=== PATIENT | male | born 1960 | race Caucasian/White ===

== ENCOUNTER 2023-10-02 05:57 | Emergency (ER) | payer OTHER, MEDICAID ==
[~2023-10-02] VITALS: Ht 190.5 cm; Wt 174.6 kg
[2023-10-02 05:59] VITALS: BP_SYST 142; PULSE 103; RESP 20; TEMP 98.5; O2SAT 99
[2023-10-02 06:28] LABS: BASOPHILS # (AUTO) 0.1 K/uL (0.0-0.2); BASOPHILS % (AUTO) 0.7 % (0.0-2.0); EOSINOPHILS # (AUTO) 0.1 K/uL (0.0-0.4); EOSINOPHILS % (AUTO) 1.1 % (0.0-4.0); HEMATOCRIT 47.4 % (36-54); HEMOGLOBIN 16.1 g/dL (14.0-18.0); LYMPHOCYTES # (AUTO) 1.6 K/uL (1.0-5.5); LYMPHOCYTES % (AUTO) 14.3 % (20.5-51.5); MEAN CORPUSCULAR HEMOGLOBIN 29 pg (27-31); MEAN CORPUSCULAR HGB CONC 34 % (32-36); MEAN CORPUSCULAR VOLUME 84 fL (79.0-98.0); MONOCYTES # (AUTO) 0.5 K/uL (0.0-1.0); MONOCYTES % (AUTO) 4.5 % (1.7-9.3); NEUTROPHILS # (AUTO) 8.9 K/uL (1.8-7.7); NEUTROPHILS % (AUTO) 79.4 % (40.0-70.0); PLATELET COUNT (AUTO) 251 K/uL (130-430); RED BLOOD CELL COUNT(AUTO) 5.65 MIL/uL (4.2-6.2); WHITE BLOOD COUNT (AUTO) 11.2 K/uL (4.8-10.8)
[2023-10-02 06:45] LABS: PROTHROMBIN TIME 10.4 SECS (9.5-12.5)
[2023-10-02 06:46] LABS: ALBUMIN 3.6 g/dL (3.4-4.8); BILIRUBIN,DIRECT 0.2 mg/dL (0.0-0.3); CALCIUM 9.5 mg/dL (8.4-11.0); POTASSIUM 3.8 mmol/L (3.5-5.1); TOTAL BILIRUBIN 0.6 mg/dL (0.0-1.0); TOTAL PROTEIN, SERUM 7.5 g/dL (6.4-8.3)
[2023-10-02] MEDS: MORPHINE 4 MG INJ. 4 MG/ML VIAL IVP ONE (06:51)
[2023-10-02] MEDS: ONDANSETRON HCL 4 MG/2 ML VIAL IVP ONE (06:52)
[2023-10-02 07:43] LABS: BILIRUBIN,URINE NEGATIVE (NEGATIVE); BLOOD, URINE NEGATIVE (NEGATIVE); CLARITY/URINE CLEAR (CLEAR); COLOR,URINE YELLOW (YELLOW); GLUCOSE,URINE 3+ (NEGATIVE); KETONES,URINE NEGATIVE (NEGATIVE); LEUKOCYTE ESTERASE ,URINE NEGATIVE (NEGATIVE); NITRITE, URINE NEGATIVE (NEGATIVE); PH,URINE 6.5 (5.0-8.0); PROTEIN URINE NEGATIVE (NEGATIVE); UROBILINOGEN,URINE 0.2 (0.2-1.0)
[2023-10-02 08:06] LABS: BACTERIA,URINE RARE /HPF (None Seen); MUCUS,URINE 1+ /LPF (None Seen); RBC,URINE 0-3 /HPF (0-3); WBC,URINE 0-3 /HPF (0-3)
[2023-10-02] MEDS ORDERED: ONDA-8 TL (08:06)
[2023-10-02] MEDS ORDERED: PANT20TA2 PO (08:16)
[2023-10-02 08:34] VITALS: BP_SYST 124; PULSE 88; RESP 14; TEMP 97.9; O2SAT 96
== END 2023-10-02 08:25 | disposition home or self-care (01) ==
LOC: SED 05:57
DX: R10.84 Generalized abdominal pain (principal); K55.069 Acute infarction of intestine, part and extent unspecified; K63.89 Other specified diseases of intestine; R73.9 Hyperglycemia, unspecified; N20.0 Calculus of kidney; I10 Essential (primary) hypertension; Z88.8 Allergy status to other drugs, medicaments and biological substances; Z88.5 Allergy status to narcotic agent; Z79.899 Other long term (current) drug therapy
CPT/HCPCS: 99285; 74176; 96374; 96375; 80076; 80048; 81001; 83690; 85025; 85610; 85730; 36415; 76376; J2405; J2270; 81000; 81015

== ENCOUNTER 2023-11-05 03:05 | Inpatient (IN) | payer OTHER, MEDICAID ==
[~2023-11-05] VITALS: Ht 188 cm; Wt 158.3 kg
[~2023-11-05 03:05] MED LIST: ONDA-8 TL; PANT20TA2 PO
[2023-11-05 03:11] VITALS: RESP 20
[2023-11-05] MEDS: NACL 0.9% 1,000 ML IV ONE (03:26)
[2023-11-05] MEDS: MORPHINE 4 MG INJ. 4 MG/ML VIAL IVP ONE (03:30)
[2023-11-05] MEDS: ONDANSETRON HCL 4 MG/2 ML VIAL IVP ONE ×2 (03:33→05:50)
[2023-11-05 03:58] LABS: BASOPHILS # (AUTO) 0.1 K/uL (0.0-0.2); BASOPHILS % (AUTO) 0.7 % (0.0-2.0); EOSINOPHILS # (AUTO) 0.2 K/uL (0.0-0.4); EOSINOPHILS % (AUTO) 2.1 % (0.0-4.0); HEMATOCRIT 46.5 % (36-54); HEMOGLOBIN 15.9 g/dL (14.0-18.0); LYMPHOCYTES # (AUTO) 1.5 K/uL (1.0-5.5); LYMPHOCYTES % (AUTO) 18.7 % (20.5-51.5); MEAN CORPUSCULAR HEMOGLOBIN 29 pg (27-31); MEAN CORPUSCULAR HGB CONC 34 % (32-36); MEAN CORPUSCULAR VOLUME 84 fL (79.0-98.0); MONOCYTES # (AUTO) 0.6 K/uL (0.0-1.0); MONOCYTES % (AUTO) 7.6 % (1.7-9.3); NEUTROPHILS # (AUTO) 5.5 K/uL (1.8-7.7); NEUTROPHILS % (AUTO) 70.9 % (40.0-70.0); PLATELET COUNT (AUTO) 248 K/uL (130-430); RED BLOOD CELL COUNT(AUTO) 5.55 MIL/uL (4.2-6.2); WHITE BLOOD COUNT (AUTO) 7.8 K/uL (4.8-10.8)
[2023-11-05 04:16] LABS: ANION GAP 7 (5-15); CALCIUM 9.1 mg/dL (8.4-11.0); CARBON DIOXIDE 31 mmol/L (23-29); CHLORIDE 104 mmol/L (98-107); CREATININE 0.81 mg/dL (0.55-1.30); GFR AFRICAN AMERICAN 124 mL/min (>90); GFR NON AFRICAN-AMERICAN 102 mL/min (>90); GLUCOSE 117 mg/dL (74-106); POTASSIUM 3.9 mmol/L (3.5-5.1); SODIUM SERUM 142 mmol/L (136-145); UREA NITROGEN, BLOOD 12 mg/dL (8-21)
[2023-11-05 04:19] LABS: ALANINE AMINOTRANSFERASE 60 U/L (12-78); ALBUMIN 3.4 g/dL (3.4-4.8); ASPARTATE AMINOTRANSFERASE 30 U/L (10-37); BILIRUBIN,DIRECT 0.2 mg/dL (0.0-0.3); LIPASE 34 U/L (16-77); TOTAL BILIRUBIN 0.8 mg/dL (0.0-1.0); TOTAL PROTEIN, SERUM 7.1 g/dL (6.4-8.3)
[2023-11-05 05:02] LABS: BILIRUBIN,URINE NEGATIVE (NEGATIVE); BLOOD, URINE NEGATIVE (NEGATIVE); CLARITY/URINE CLEAR (CLEAR); COLOR,URINE YELLOW (YELLOW); GLUCOSE,URINE NEGATIVE (NEGATIVE); KETONES,URINE NEGATIVE (NEGATIVE); LEUKOCYTE ESTERASE ,URINE NEGATIVE (NEGATIVE); NITRITE, URINE NEGATIVE (NEGATIVE); PROTEIN URINE NEGATIVE (NEGATIVE); UROBILINOGEN,URINE 0.2 (0.2-1.0)
[2023-11-05] MEDS: KETOROLAC TROMETHAMINE 15 MG VIAL IVP ONE (05:42)
[2023-11-05] MEDS ORDERED: AMLO2.5T50 PO (05:56)
[2023-11-05] MEDS ORDERED: EMPA25TA PO (05:56)
[2023-11-05] MEDS ORDERED: ATOR10TA68 PO (05:56)
[2023-11-05] MEDS ORDERED: PANT40TA45 PO (05:56)
[2023-11-05] MEDS ORDERED: ESCI-6 PO (05:56)
[2023-11-05] MEDS ORDERED: LISI-209 PO (05:57)
[2023-11-05] MEDS: D5/0.45 NS 1,000 ML IV SCH (07:56)
[2023-11-05 10:41] VITALS: BP_SYST 122; PULSE 59; RESP 16; TEMP 97.9; O2SAT 96
[2023-11-05 12:00] VITALS: BP_SYST 122; PULSE 57; RESP 16; TEMP 97.9; O2SAT 96
[2023-11-05] MEDS ORDERED: KETOROLAC TROMETHAMINE 30 MG VIAL IM PRN (13:15)
[2023-11-05] MEDS ORDERED: HYDROcodone/ACETAMIN 5-325 MG TAB (NORCO/ VICODIN) PO PRN (13:15)
[2023-11-05] MEDS: PANTOPRAZOLE SODIUM 40 MG/VIAL (PROTONIX) IVP ONE (13:32)
[2023-11-05] MEDS: ONDANSETRON HCL 4 MG/2 ML VIAL IVP PRN (13:33)
[2023-11-05] MEDS: HYDROcodone/ACETAMIN 10-325 MG TAB PO PRN (13:34)
[2023-11-05 16:00] VITALS: BP_SYST 129; PULSE 62; RESP 16; TEMP 97.6; O2SAT 98
[2023-11-05] MEDS: CITALOPRAM HYDROBROMIDE 20 MG TABLET PO SCH (17:15)
[2023-11-05] MEDS: ATORVASTATIN 10 MG TABLET PO SCH (17:16)
[2023-11-05] MEDS ORDERED: ESCITALOPRAM OXALATE 10 MG TABLET PO SCH (18:00)
[2023-11-05 19:45] VITALS: BP_SYST 106; PULSE 65; RESP 18; TEMP 97.5; O2SAT 96
[2023-11-05 20:45] VITALS: O2SAT 96
[2023-11-06] VITALS (8 sets, daily range): BP systolic 100–142; PULSE 54–60; RESP 16–18; TEMP 96.3–97.8; O2SAT 94–98
[2023-11-06] MEDS: MORPHINE 2 MG/ML INJ. SYRINGE IVP PRN (02:39)
[2023-11-06 06:05] LABS: BASOPHILS % (AUTO) 0.9 % (0.0-2.0); EOSINOPHILS # (AUTO) 0.1 K/uL (0.0-0.4); EOSINOPHILS % (AUTO) 1.9 % (0.0-4.0); HEMATOCRIT 42.8 % (36-54); HEMOGLOBIN 14.7 g/dL (14.0-18.0); LYMPHOCYTES # (AUTO) 1.2 K/uL (1.0-5.5); LYMPHOCYTES % (AUTO) 23.4 % (20.5-51.5); MEAN CORPUSCULAR HEMOGLOBIN 29 pg (27-31); MEAN CORPUSCULAR HGB CONC 34 % (32-36); MEAN CORPUSCULAR VOLUME 84 fL (79.0-98.0); MONOCYTES # (AUTO) 0.4 K/uL (0.0-1.0); MONOCYTES % (AUTO) 6.8 % (1.7-9.3); NEUTROPHILS # (AUTO) 3.5 K/uL (1.8-7.7); PLATELET COUNT (AUTO) 213 K/uL (130-430); RED CELL DISTRIBUTION WIDTH 15.9 % (9.0-15.0); WHITE BLOOD COUNT (AUTO) 5.3 K/uL (4.8-10.8)
[2023-11-06 07:33] LABS: INR 1.1 (0.80-1.20); PROTHROMBIN TIME 11.1 SECS (9.5-12.5)
[2023-11-06] MEDS ORDERED: MEPERIDINE 100 MG INJ. 100 MG/ML VIAL ONE (07:47)
[2023-11-06] MEDS ORDERED: MIDAZOLAM HCL 5 MG/5 ML VIAL ONE (07:48)
[2023-11-06 07:50] LABS: CALCIUM 8.5 mg/dL (8.4-11.0); CREATININE 0.8 mg/dL (0.55-1.30); PHOSPHORUS 3.1 mg/dL (2.7-4.5); POTASSIUM 4.3 mmol/L (3.5-5.1); TOTAL BILIRUBIN 0.8 mg/dL (0.0-1.0); TOTAL PROTEIN, SERUM 6.3 g/dL (6.4-8.3)
[2023-11-06] MEDS: amLODIPine BESYLATE 5 MG TABLET PO SCH (09:00)
[2023-11-06] MEDS: EMPAGLIFLOZIN 10 MG TABLET PO SCH (09:00)
[2023-11-06] MEDS: lisinopriL 5 MG TABLET PO SCH (09:00)
[2023-11-06] MEDS ORDERED: PANTOPRAZOLE SODIUM 40 MG TAB PO SCH (09:00)
[2023-11-06] MEDS: PANTOPRAZOLE SODIUM 40 MG/VIAL (PROTONIX) IVP SCH (12:55)
[2023-11-06] MEDS: DICYCLOMINE HCL 10 MG CAPSULE PO ONE (17:02)
[2023-11-06] MEDS: DICYCLOMINE HCL 10 MG CAPSULE PO SCH (20:27)
[2023-11-07] VITALS (8 sets, daily range): BP systolic 99–125; PULSE 53–69; RESP 17–19; TEMP 96.9–97.6; O2SAT 94–99
[2023-11-07 07:04] LABS: BASOPHILS % (AUTO) 0.7 % (0.0-2.0); EOSINOPHILS # (AUTO) 0.1 K/uL (0.0-0.4); EOSINOPHILS % (AUTO) 2.3 % (0.0-4.0); HEMATOCRIT 43.8 % (36-54); HEMOGLOBIN 14.8 g/dL (14.0-18.0); LYMPHOCYTES # (AUTO) 1.2 K/uL (1.0-5.5); LYMPHOCYTES % (AUTO) 20.1 % (20.5-51.5); MEAN CORPUSCULAR HEMOGLOBIN 29 pg (27-31); MEAN CORPUSCULAR HGB CONC 34 % (32-36); MEAN CORPUSCULAR VOLUME 84 fL (79.0-98.0); MONOCYTES # (AUTO) 0.4 K/uL (0.0-1.0); MONOCYTES % (AUTO) 6.9 % (1.7-9.3); NEUTROPHILS # (AUTO) 4.3 K/uL (1.8-7.7); PLATELET COUNT (AUTO) 216 K/uL (130-430); RED BLOOD CELL COUNT(AUTO) 5.21 MIL/uL (4.2-6.2); RED CELL DISTRIBUTION WIDTH 16.1 % (9.0-15.0); WHITE BLOOD COUNT (AUTO) 6.2 K/uL (4.8-10.8)
[2023-11-07 07:17] LABS: CALCIUM 8.8 mg/dL (8.4-11.0); CREATININE 0.86 mg/dL (0.55-1.30); POTASSIUM 4.3 mmol/L (3.5-5.1)
[2023-11-07] MEDS: MORPHINE 4 MG INJ. 4 MG/ML VIAL IVP PRN (18:44)
[2023-11-08 00:18] VITALS: BP_SYST 124; PULSE 54; RESP 22; TEMP 98; O2SAT 98
[2023-11-08 07:02] LABS: BASOPHILS % (AUTO) 0.5 % (0.0-2.0); EOSINOPHILS # (AUTO) 0.2 K/uL (0.0-0.4); EOSINOPHILS % (AUTO) 2.6 % (0.0-4.0); HEMATOCRIT 46.5 % (36-54); HEMOGLOBIN 15.5 g/dL (14.0-18.0); LYMPHOCYTES # (AUTO) 1.5 K/uL (1.0-5.5); MEAN CORPUSCULAR HEMOGLOBIN 28 pg (27-31); MEAN CORPUSCULAR HGB CONC 33 % (32-36); MEAN CORPUSCULAR VOLUME 85 fL (79.0-98.0); MONOCYTES # (AUTO) 0.5 K/uL (0.0-1.0); MONOCYTES % (AUTO) 6.8 % (1.7-9.3); NEUTROPHILS # (AUTO) 4.4 K/uL (1.8-7.7); NEUTROPHILS % (AUTO) 67.1 % (40.0-70.0); PLATELET COUNT (AUTO) 228 K/uL (130-430); RED BLOOD CELL COUNT(AUTO) 5.47 MIL/uL (4.2-6.2); RED CELL DISTRIBUTION WIDTH 16.6 % (9.0-15.0); WHITE BLOOD COUNT (AUTO) 6.6 K/uL (4.8-10.8)
[2023-11-08 07:08] LABS: ALBUMIN 3.2 g/dL (3.4-4.8); CALCIUM 9.3 mg/dL (8.4-11.0); CREATININE 0.86 mg/dL (0.55-1.30); POTASSIUM 4.6 mmol/L (3.5-5.1); TOTAL BILIRUBIN 0.7 mg/dL (0.0-1.0); TOTAL PROTEIN, SERUM 6.8 g/dL (6.4-8.3)
[2023-11-08 08:30] VITALS: BP_SYST 106; PULSE 69; RESP 18; TEMP 97.2; O2SAT 99
[2023-11-08] MEDS ORDERED: DICY-14 PO (10:01)
[2023-11-08 11:30] VITALS: O2SAT 99
[2023-11-08 11:42] VITALS: BP_SYST 107; PULSE 66; RESP 16; TEMP 97.5; O2SAT 98
[2023-11-08] MEDS ORDERED: HEPARIN IV FLUSH 300 UNITS/3ML SYR IV ONE ×2 (12:30)
[2023-11-08 13:53] VITALS: BP_SYST 104; PULSE 69; RESP 18; TEMP 97.2; O2SAT 98
== END 2023-11-08 14:20 | disposition home health service (06) | DRG 392 ==
LOC: SED 03:05 → SMU 07:37
PROVIDERS: ADMIT Preventive Medicine Preventive Medicine/Occupational Environmental Medicine; ATTEND Preventive Medicine Preventive Medicine/Occupational Environmental Medicine
PROC: 0DB78ZX Excision of Stomach, Pylorus, Via Natural or Artificial Opening Endoscopic, Diagnostic (ICD-10-PCS; 2023-11-06)
PROC: 0DB98ZX Excision of Duodenum, Via Natural or Artificial Opening Endoscopic, Diagnostic (ICD-10-PCS; principal; 2023-11-06 11:45)
DX: K29.70 Gastritis, unspecified, without bleeding (principal); Z68.41 Body mass index [BMI] 40.0-44.9, adult; K21.9 Gastro-esophageal reflux disease without esophagitis; I10 Essential (primary) hypertension; E78.5 Hyperlipidemia, unspecified; Z20.822 Contact with and (suspected) exposure to COVID-19; E11.65 Type 2 diabetes mellitus with hyperglycemia; E88.09 Other disorders of plasma-protein metabolism, not elsewhere classified; E66.01 Morbid (severe) obesity due to excess calories; R62.7 Adult failure to thrive; Z80.42 Family history of malignant neoplasm of prostate; Z85.72 Personal history of non-Hodgkin lymphomas; Z87.891 Personal history of nicotine dependence; Z90.49 Acquired absence of other specified parts of digestive tract; Z88.5 Allergy status to narcotic agent; Z88.8 Allergy status to other drugs, medicaments and biological substances; Z79.899 Other long term (current) drug therapy
CPT/HCPCS: 36415; 43239; 71045; 80048; 80053; 80076; 81001; 81003; 82948; 83605; 83690; 83735; 84100; 84484; 85025; 85610; 87081; 88305; 88312; 88313; 97110-GP; 97112-GP; 97116-GP; 97530-GP; 99285; C9113; J1885; J2175; J2250; J2270; J2405

== ENCOUNTER 2023-11-10 08:29 | Emergency (ER) | payer OTHER, MEDICAID ==
[~2023-11-10] VITALS: Ht 188 cm; Wt 158.8 kg
[~2023-11-10 08:29] MED LIST changes: +AMLO2.5T50 PO; +ATOR10TA68 PO; +DICY-14 PO; +EMPA25TA PO; +ESCI-6 PO; +LISI-209 PO; -ONDA-8 TL; -PANT20TA2 PO; +PANT40TA45 PO
[2023-11-10 08:30] VITALS: BP_SYST 121; PULSE 70; RESP 19; TEMP 97.2; O2SAT 97
[2023-11-10] MEDS: ONDANSETRON 4 MG ODT TAB PO ONE (08:57)
[2023-11-10 08:59] LABS: BASOPHILS % (AUTO) 0.4 % (0.0-2.0); EOSINOPHILS # (AUTO) 0.2 K/uL (0.0-0.4); EOSINOPHILS % (AUTO) 2.4 % (0.0-4.0); HEMATOCRIT 48.4 % (36-54); HEMOGLOBIN 16.2 g/dL (14.0-18.0); LYMPHOCYTES # (AUTO) 1.5 K/uL (1.0-5.5); LYMPHOCYTES % (AUTO) 20.9 % (20.5-51.5); MEAN CORPUSCULAR HEMOGLOBIN 28 pg (27-31); MEAN CORPUSCULAR HGB CONC 33 % (32-36); MEAN CORPUSCULAR VOLUME 85 fL (79.0-98.0); MONOCYTES # (AUTO) 0.5 K/uL (0.0-1.0); MONOCYTES % (AUTO) 7.2 % (1.7-9.3); NEUTROPHILS # (AUTO) 5.1 K/uL (1.8-7.7); NEUTROPHILS % (AUTO) 69.1 % (40.0-70.0); PLATELET COUNT (AUTO) 253 K/uL (130-430); RED BLOOD CELL COUNT(AUTO) 5.72 MIL/uL (4.2-6.2); RED CELL DISTRIBUTION WIDTH 16.3 % (9.0-15.0); WHITE BLOOD COUNT (AUTO) 7.3 K/uL (4.8-10.8)
[2023-11-10 09:18] LABS: ANION GAP 12 (5-15); CALCIUM 9.4 mg/dL (8.4-11.0); CARBON DIOXIDE 28 mmol/L (23-29); CHLORIDE 103 mmol/L (98-107); CREATININE 0.88 mg/dL (0.55-1.30); GFR AFRICAN AMERICAN 112 mL/min (>90); GFR NON AFRICAN-AMERICAN 93 mL/min (>90); GLUCOSE 119 mg/dL (74-106); SODIUM SERUM 143 mmol/L (136-145); UREA NITROGEN, BLOOD 12 mg/dL (8-21)
[2023-11-10 09:21] LABS: PROTHROMBIN TIME 10.5 SECS (9.5-12.5)
[2023-11-10 09:33] LABS: ALANINE AMINOTRANSFERASE 47 U/L (12-78); ALBUMIN 3.6 g/dL (3.4-4.8); AMYLASE 32 U/L (0-100); ASPARTATE AMINOTRANSFERASE 18 U/L (10-37); BILIRUBIN,DIRECT 0.2 mg/dL (0.0-0.3); LACTATE DEHYDROGENASE 137 U/L (85-227); LIPASE 32 U/L (16-77); TOTAL BILIRUBIN 0.5 mg/dL (0.0-1.0); TOTAL PROTEIN, SERUM 7.7 g/dL (6.4-8.3)
[2023-11-10 09:54] LABS: BILIRUBIN,URINE NEGATIVE (NEGATIVE); CLARITY/URINE CLEAR (CLEAR); COLOR,URINE YELLOW (YELLOW); GLUCOSE,URINE NEGATIVE (NEGATIVE); KETONES,URINE NEGATIVE (NEGATIVE); LEUKOCYTE ESTERASE ,URINE NEGATIVE (NEGATIVE); NITRITE, URINE NEGATIVE (NEGATIVE); PH,URINE 6.5 (5.0-8.0); PROTEIN URINE NEGATIVE (NEGATIVE); UROBILINOGEN,URINE 0.2 (0.2-1.0)
[2023-11-10 10:10] LABS: BLOOD, URINE TRACE (NEGATIVE)
[2023-11-10 10:47] LABS: BACTERIA,URINE None Seen /HPF (None Seen); RBC,URINE 0-3 /HPF (0-3); WBC,URINE 0-3 /HPF (0-3)
[2023-11-10] MEDS ORDERED: IBUP-1971 PO (10:51)
[2023-11-10] MEDS ORDERED: HYDR-3917 PO (10:51)
[2023-11-10 11:20] VITALS: BP_SYST 147; PULSE 68; RESP 19; TEMP 97.8; O2SAT 98
== END 2023-11-10 11:10 | disposition home or self-care (01) ==
LOC: SED 08:29
DX: R10.33 Periumbilical pain (principal); R11.2 Nausea with vomiting, unspecified; R19.7 Diarrhea, unspecified; I10 Essential (primary) hypertension; Z88.1 Allergy status to other antibiotic agents; Z88.2 Allergy status to sulfonamides; Z88.5 Allergy status to narcotic agent; Z88.8 Allergy status to other drugs, medicaments and biological substances; Z79.899 Other long term (current) drug therapy
CPT/HCPCS: 99284; 74176; 80076; 80048; 81001; 82150; 83615; 83690; 85025; 85610; 85730; 84484; 36415; 83605; 82397; 81000; 81015; Q0162

== ENCOUNTER 2024-02-28 04:00 | Emergency (ER) | payer OTHER, MEDICAID ==
[~2024-02-28] VITALS: Ht 188 cm; Wt 154.2 kg
[~2024-02-28 04:00] MED LIST changes: +ALPR0.5T PO; +HYDR-3917 PO; +IBUP-1971 PO
[2024-02-28 04:08] VITALS: BP_SYST 127; PULSE 71; RESP 20; TEMP 98.6; O2SAT 99
[2024-02-28] MEDS: DIPHENHYDRAMINE INJ 50 MG/ML VIAL IVP ONE (04:39)
[2024-02-28 04:48] LABS: BASOPHILS % (AUTO) 0.6 % (0.0-2.0); EOSINOPHILS # (AUTO) 0.1 K/uL (0.0-0.4); EOSINOPHILS % (AUTO) 1.8 % (0.0-4.0); HEMATOCRIT 44.7 % (36-54); HEMOGLOBIN 15.1 g/dL (14.0-18.0); LYMPHOCYTES # (AUTO) 1.2 K/uL (1.0-5.5); LYMPHOCYTES % (AUTO) 20.8 % (20.5-51.5); MEAN CORPUSCULAR HEMOGLOBIN 29 pg (27-31); MEAN CORPUSCULAR HGB CONC 34 % (32-36); MEAN CORPUSCULAR VOLUME 85 fL (79.0-98.0); MONOCYTES # (AUTO) 0.4 K/uL (0.0-1.0); MONOCYTES % (AUTO) 6.7 % (1.7-9.3); NEUTROPHILS # (AUTO) 3.9 K/uL (1.8-7.7); NEUTROPHILS % (AUTO) 70.1 % (40.0-70.0); PLATELET COUNT (AUTO) 215 K/uL (130-430); RED BLOOD CELL COUNT(AUTO) 5.26 MIL/uL (4.2-6.2); RED CELL DISTRIBUTION WIDTH 14.5 % (9.0-15.0); WHITE BLOOD COUNT (AUTO) 5.6 K/uL (4.8-10.8)
[2024-02-28 05:11] LABS: ANION GAP 5 (5-15); CALCIUM 9.3 mg/dL (8.4-11.0); CARBON DIOXIDE 30 mmol/L (23-29); CHLORIDE 104 mmol/L (98-107); CREATININE 0.85 mg/dL (0.55-1.30); GFR AFRICAN AMERICAN 117 mL/min (>90); GFR NON AFRICAN-AMERICAN 97 mL/min (>90); GLUCOSE 118 mg/dL (74-106); SODIUM SERUM 139 mmol/L (136-145); UREA NITROGEN, BLOOD 10 mg/dL (8-21)
[2024-02-28] MEDS ORDERED: HYDR10SO PO (05:47)
[2024-02-28 06:00] VITALS: BP_SYST 120; PULSE 63; RESP 14; TEMP 97.2; O2SAT 98
== END 2024-02-28 06:00 | disposition home or self-care (01) ==
LOC: SED 04:00
DX: F41.9 Anxiety disorder, unspecified (principal); R07.89 Other chest pain; I10 Essential (primary) hypertension; Z85.72 Personal history of non-Hodgkin lymphomas; Z88.1 Allergy status to other antibiotic agents; Z88.2 Allergy status to sulfonamides; Z88.5 Allergy status to narcotic agent; Z88.8 Allergy status to other drugs, medicaments and biological substances; Z79.899 Other long term (current) drug therapy
CPT/HCPCS: 99284; 96374; 80048; 85025; 84484; 36415; 93005; 82948; J1200

== ENCOUNTER 2024-03-03 21:42 | Inpatient (IN) | payer OTHER, MEDICAID ==
[~2024-03-03] VITALS: Ht 190.5 cm; Wt 191.4 kg
[~2024-03-03 21:42] MED LIST changes: +HYDR10SO PO
[2024-03-03 21:47] VITALS: BP_SYST 101; PULSE 61; RESP 13; TEMP 97.3; O2SAT 100
[2024-03-03] MEDS: ONDANSETRON HCL 4 MG/2 ML VIAL IVP ONE (22:16)
[2024-03-03 22:20] LABS: BASOPHILS # (AUTO) 0.1 K/uL (0.0-0.2); BASOPHILS % (AUTO) 0.8 % (0.0-2.0); EOSINOPHILS # (AUTO) 0.2 K/uL (0.0-0.4); EOSINOPHILS % (AUTO) 2.3 % (0.0-4.0); HEMATOCRIT 45.6 % (36-54); HEMOGLOBIN 15.4 g/dL (14.0-18.0); LYMPHOCYTES # (AUTO) 1.9 K/uL (1.0-5.5); LYMPHOCYTES % (AUTO) 24.7 % (20.5-51.5); MEAN CORPUSCULAR HEMOGLOBIN 29 pg (27-31); MEAN CORPUSCULAR HGB CONC 34 % (32-36); MEAN CORPUSCULAR VOLUME 85 fL (79.0-98.0); MONOCYTES # (AUTO) 0.6 K/uL (0.0-1.0); MONOCYTES % (AUTO) 7.9 % (1.7-9.3); NEUTROPHILS # (AUTO) 4.8 K/uL (1.8-7.7); NEUTROPHILS % (AUTO) 64.3 % (40.0-70.0); PLATELET COUNT (AUTO) 213 K/uL (130-430); RED BLOOD CELL COUNT(AUTO) 5.38 MIL/uL (4.2-6.2); RED CELL DISTRIBUTION WIDTH 14.8 % (9.0-15.0); WHITE BLOOD COUNT (AUTO) 7.5 K/uL (4.8-10.8)
[2024-03-03] MEDS: MORPHINE 4 MG INJ. 4 MG/ML VIAL IVP ONE (22:49)
[2024-03-03 23:15] LABS: PROTHROMBIN TIME 10.5 SECS (9.5-12.5)
[2024-03-03 23:32] LABS: ALANINE AMINOTRANSFERASE 5 U/L (12-78); ALBUMIN 3.4 g/dL (3.4-4.8); ANION GAP 8 (5-15); ASPARTATE AMINOTRANSFERASE 5 U/L (10-37); BILIRUBIN,DIRECT 0.1 mg/dL (0.0-0.3); CALCIUM 9.1 mg/dL (8.4-11.0); CARBON DIOXIDE 30 mmol/L (23-29); CHLORIDE 103 mmol/L (98-107); CREATINE KINASE, TOTAL 65 U/L (39-308); CREATININE 0.95 mg/dL (0.55-1.30); GFR AFRICAN AMERICAN 103 mL/min (>90); GFR NON AFRICAN-AMERICAN 85 mL/min (>90); GLUCOSE 129 mg/dL (74-106); POTASSIUM 4.1 mmol/L (3.5-5.1); SODIUM SERUM 141 mmol/L (136-145); TOTAL BILIRUBIN 0.4 mg/dL (0.0-1.0); UREA NITROGEN, BLOOD 15 mg/dL (8-21)
[2024-03-04] MEDS ORDERED: NITROGLYCERIN 0.4 MG TAB.SUBL SL PRN (00:15)
[2024-03-04] MEDS ORDERED: GLUCOSE (DEXTROSE) ORAL GEL -Adults PO PRN (00:15)
[2024-03-04] MEDS ORDERED: D5W 1,000 ML IV PRN (00:15)
[2024-03-04] MEDS ORDERED: DEXTROSE 50% JECT 50 ML DISP.SYRIN IVP PRN ×2 (00:15→06:45)
[2024-03-04] MEDS: ASPIRIN 325 MG TABLET (ECOTRIN) PO ONE (00:26)
[2024-03-04] MEDS ORDERED: ZOLP10TA2 PO (03:22)
[2024-03-04] MEDS ORDERED: CITA10TA14 PO (03:22)
[2024-03-04] MEDS ORDERED: TAMS0.4C96 PO (03:24)
[2024-03-04] MEDS ORDERED: INSULIN LISPRO SLIDING SCALE 100 UNITS/ML, 3 ML VIAL (humaLOG) SUBCUT PRN (06:45)
[2024-03-04] MEDS: ONDANSETRON HCL 4 MG/2 ML VIAL IVP PRN (08:58)
[2024-03-04] MEDS: TAMSULOSIN HCL 0.4 MG CAP PO SCH (09:00)
[2024-03-04] MEDS: ASPIRIN 81 MG TAB.CHEW PO SCH (09:23)
[2024-03-04] MEDS: PANTOPRAZOLE SODIUM 40 MG TAB PO SCH (09:24)
[2024-03-04] MEDS: amLODIPine BESYLATE 5 MG TABLET PO SCH (09:24)
[2024-03-04 12:18] VITALS: BP_SYST 153; PULSE 70; RESP 18; TEMP 97.8; O2SAT 98
[2024-03-04] MEDS: CITALOPRAM HYDROBROMIDE 20 MG TABLET PO ONE (13:21)
[2024-03-04] MEDS: ACETAMINOPHEN 650 MG/20.3 ML UDC PO PRN (15:53)
[2024-03-04 16:10] VITALS: BP_SYST 149; PULSE 84; RESP 18; TEMP 98.2; O2SAT 97
[2024-03-04 17:04] LABS: BASOPHILS # (AUTO) 0.1 K/uL (0.0-0.2); BASOPHILS % (AUTO) 1.7 % (0.0-2.0); EOSINOPHILS # (AUTO) 0.1 K/uL (0.0-0.4); EOSINOPHILS % (AUTO) 1.4 % (0.0-4.0); HEMATOCRIT 42.6 % (36-54); HEMOGLOBIN 14.7 g/dL (14.0-18.0); LYMPHOCYTES # (AUTO) 1.9 K/uL (1.0-5.5); LYMPHOCYTES % (AUTO) 26.4 % (20.5-51.5); MEAN CORPUSCULAR HEMOGLOBIN 29 pg (27-31); MEAN CORPUSCULAR HGB CONC 34 % (32-36); MEAN CORPUSCULAR VOLUME 84 fL (79.0-98.0); MONOCYTES # (AUTO) 0.4 K/uL (0.0-1.0); NEUTROPHILS # (AUTO) 4.6 K/uL (1.8-7.7); NEUTROPHILS % (AUTO) 64.5 % (40.0-70.0); PLATELET COUNT (AUTO) 204 K/uL (130-430); RED BLOOD CELL COUNT(AUTO) 5.04 MIL/uL (4.2-6.2); RED CELL DISTRIBUTION WIDTH 14.8 % (9.0-15.0); WHITE BLOOD COUNT (AUTO) 7.1 K/uL (4.8-10.8)
[2024-03-04 17:37] LABS: HEMOGLOBIN A1C 6.4 % (<5.7)
[2024-03-04 17:40] LABS: CALCIUM 8.9 mg/dL (8.4-11.0); CREATININE 0.9 mg/dL (0.55-1.30); POTASSIUM 3.9 mmol/L (3.5-5.1); THYROID STIMULATING HORMONE 1.55 uIu/mL (0.36-3.74)
[2024-03-04 20:00] VITALS: BP_SYST 118; PULSE 60; RESP 18; TEMP 97.6; O2SAT 96
[2024-03-04] MEDS: METOPROLOL TARTRATE 25 MG TABLET PO SCH (20:28)
[2024-03-04] MEDS: QUEtiapine FUMARATE 25 MG TABLET PO SCH (20:28)
[2024-03-04] MEDS: ATORVASTATIN 10 MG TABLET PO SCH (20:29)
[2024-03-04] MEDS: LOSARTAN POTASSIUM 25 MG TABLET PO SCH (20:29)
[2024-03-04] MEDS: traZODone HCL 50 MG TABLET (DESYREL) PO PRN (21:29)
[2024-03-04 21:36] VITALS: O2SAT 96
[2024-03-05] VITALS (7 sets, daily range): BP systolic 104–121; PULSE 56–64; RESP 16–19; TEMP 97.1–98.4; O2SAT 93–99
[2024-03-05] MEDS: ONDANSETRON HCL 4 MG/2 ML VIAL IVP PRN (03:36)
[2024-03-05] MEDS: CITALOPRAM HYDROBROMIDE 20 MG TABLET PO SCH (08:52)
[2024-03-05] MEDS: DOCUSATE SODIUM 100 MG CAPSULE PO ONE (11:01)
[2024-03-05] MEDS: HEPARIN SODIUM,PORCINE 5,000 UNITS/ML VIAL SUBCUT ONE (11:05)
[2024-03-05] MEDS: MILK OF MAGNESIA 30 ML UDC PO PRN (15:06)
[2024-03-05] MEDS: QUEtiapine FUMARATE 25 MG TABLET PO SCH (20:17)
[2024-03-05] MEDS: DOCUSATE SODIUM 100 MG CAPSULE PO SCH (20:18)
[2024-03-05] MEDS: HEPARIN SODIUM,PORCINE 5,000 UNITS/ML VIAL SUBCUT SCH (20:20)
[2024-03-06 00:01] VITALS: BP_SYST 100; PULSE 61; RESP 16; TEMP 98; O2SAT 96
[2024-03-06 06:38] LABS: BASOPHILS # (AUTO) 0.1 K/uL (0.0-0.2); BASOPHILS % (AUTO) 0.9 % (0.0-2.0); EOSINOPHILS # (AUTO) 0.1 K/uL (0.0-0.4); EOSINOPHILS % (AUTO) 2.2 % (0.0-4.0); HEMATOCRIT 45.7 % (36-54); LYMPHOCYTES # (AUTO) 1.5 K/uL (1.0-5.5); LYMPHOCYTES % (AUTO) 23.9 % (20.5-51.5); MEAN CORPUSCULAR HEMOGLOBIN 28 pg (27-31); MEAN CORPUSCULAR HGB CONC 33 % (32-36); MEAN CORPUSCULAR VOLUME 86 fL (79.0-98.0); MONOCYTES # (AUTO) 0.5 K/uL (0.0-1.0); MONOCYTES % (AUTO) 7.5 % (1.7-9.3); NEUTROPHILS # (AUTO) 4.1 K/uL (1.8-7.7); NEUTROPHILS % (AUTO) 65.5 % (40.0-70.0); PLATELET COUNT (AUTO) 206 K/uL (130-430); RED BLOOD CELL COUNT(AUTO) 5.32 MIL/uL (4.2-6.2); RED CELL DISTRIBUTION WIDTH 14.9 % (9.0-15.0); WHITE BLOOD COUNT (AUTO) 6.2 K/uL (4.8-10.8)
[2024-03-06 06:57] LABS: CALCIUM 9.4 mg/dL (8.4-11.0); CREATININE 0.94 mg/dL (0.55-1.30); POTASSIUM 4.2 mmol/L (3.5-5.1)
[2024-03-06 08:00] VITALS: BP_SYST 144; PULSE 60; RESP 18; TEMP 98.2; O2SAT 99
[2024-03-06] MEDS: POLYETHYLENE GLYCOL 3350, 17 GM/ POWD.PACK PO SCH (08:24)
[2024-03-06 11:05] VITALS: BP_SYST 122; PULSE 57; RESP 16; TEMP 97.1; O2SAT 97
[2024-03-06] MEDS: CITALOPRAM HYDROBROMIDE 20 MG TABLET PO ONE (11:13)
[2024-03-06] MEDS ORDERED: METO25TA3 PO (13:42)
[2024-03-06] MEDS ORDERED: ZOLP5TAB2 PO (13:42)
[2024-03-06 15:11] VITALS: BP_SYST 144; PULSE 62; RESP 16; TEMP 97.6; O2SAT 98
[2024-03-06] MEDS ORDERED: LOSA-412 PO (15:18)
[2024-03-06 20:00] VITALS: BP_SYST 145; PULSE 55; RESP 18; TEMP 97.4; O2SAT 97
[2024-03-06] MEDS: ZOLPIDEM TARTRATE 5 MG TABLET PO SCH (20:08)
[2024-03-07] VITALS: BP_SYST 138; PULSE 65; RESP 18; TEMP 97.6; O2SAT 96
[2024-03-07 08:01] VITALS: BP_SYST 135; PULSE 68; RESP 17; TEMP 98.2; O2SAT 98; O2SAT 99
[2024-03-07] MEDS: CITALOPRAM HYDROBROMIDE 20 MG TABLET PO SCH (08:27)
[2024-03-07] MEDS: LOSARTAN POTASSIUM 25 MG TABLET PO SCH (08:28)
[2024-03-07] MEDS ORDERED: LORA-259 PO (10:27)
[2024-03-07] MEDS: LORazepam 2 MG/ML VIAL IVP PRN (10:52)
[2024-03-07 11:04] VITALS: BP_SYST 121; PULSE 60; RESP 16; TEMP 97.2; O2SAT 98
[2024-03-07 14:15] VITALS: BP_SYST 125; PULSE 77; RESP 18; TEMP 98.4; O2SAT 99
== END 2024-03-07 14:45 | DRG 206 ==
LOC: SED 21:42 → STU 03-04 00:02 → SMU 03-04 19:17
PROVIDERS: ADMIT Internal Medicine; ATTEND Internal Medicine
DX: M94.0 Chondrocostal junction syndrome [Tietze] (principal); M86.8X7 Other osteomyelitis, ankle and foot; Z68.43 Body mass index [BMI] 50.0-59.9, adult; G47.00 Insomnia, unspecified; K21.9 Gastro-esophageal reflux disease without esophagitis; I10 Essential (primary) hypertension; F32.A Depression, unspecified; E11.69 Type 2 diabetes mellitus with other specified complication; E66.01 Morbid (severe) obesity due to excess calories; E78.5 Hyperlipidemia, unspecified; F39 Unspecified mood [affective] disorder; Z88.1 Allergy status to other antibiotic agents; Z88.2 Allergy status to sulfonamides; Z88.5 Allergy status to narcotic agent
CPT/HCPCS: 36415; 71045; 80048; 80061; 80076; 82550; 82948; 83037; 83690; 83880; 84443; 84484; 85025; 85610; 85730; 93005; 93306; 93970; 96374; 96375; 97112-GP; 97116-GP; 97530-GP; 99285; J1644; J2060; J2270; J2405

== ENCOUNTER 2024-03-26 08:50 | Emergency (ER) | payer OTHER, MEDICAID ==
[~2024-03-26] VITALS: Ht 170.2 cm; Wt 113.4 kg
[~2024-03-26 08:50] MED LIST changes: -ALPR0.5T PO; -AMLO2.5T50 PO; -DICY-14 PO; -EMPA25TA PO; -HYDR-3917 PO; -HYDR10SO PO; -IBUP-1971 PO; -LISI-209 PO; +LORA-259 PO; +LOSA-412 PO; +METO25TA3 PO; +TAMS0.4C96 PO; +ZOLP5TAB2 PO
[2024-03-26 08:53] VITALS: BP_SYST 133; PULSE 89; RESP 18; TEMP 98.3; O2SAT 98
[2024-03-26] MEDS: ONDANSETRON 4 MG ODT TAB PO ONE (09:18)
[2024-03-26 09:21] LABS: BASOPHILS # (AUTO) 0.1 K/uL (0.0-0.2); BASOPHILS % (AUTO) 0.9 % (0.0-2.0); EOSINOPHILS # (AUTO) 0.1 K/uL (0.0-0.4); EOSINOPHILS % (AUTO) 1.3 % (0.0-4.0); HEMATOCRIT 46.1 % (36-54); HEMOGLOBIN 15.5 g/dL (14.0-18.0); LYMPHOCYTES # (AUTO) 1.4 K/uL (1.0-5.5); LYMPHOCYTES % (AUTO) 20.4 % (20.5-51.5); MEAN CORPUSCULAR HEMOGLOBIN 28 pg (27-31); MEAN CORPUSCULAR HGB CONC 34 % (32-36); MEAN CORPUSCULAR VOLUME 85 fL (79.0-98.0); MONOCYTES # (AUTO) 0.4 K/uL (0.0-1.0); MONOCYTES % (AUTO) 5.9 % (1.7-9.3); NEUTROPHILS # (AUTO) 4.7 K/uL (1.8-7.7); NEUTROPHILS % (AUTO) 71.5 % (40.0-70.0); PLATELET COUNT (AUTO) 215 K/uL (130-430); RED BLOOD CELL COUNT(AUTO) 5.44 MIL/uL (4.2-6.2); RED CELL DISTRIBUTION WIDTH 15.1 % (9.0-15.0); WHITE BLOOD COUNT (AUTO) 6.6 K/uL (4.8-10.8)
[2024-03-26 09:27] LABS: ACETONE, SERUM NEGATIVE (NEGATIVE)
[2024-03-26 09:41] LABS: ALANINE AMINOTRANSFERASE 26 U/L (12-78); ALBUMIN 3.5 g/dL (3.4-4.8); ANION GAP 7 (5-15); ASPARTATE AMINOTRANSFERASE 16 U/L (10-37); CARBON DIOXIDE 29 mmol/L (23-29); CHLORIDE 103 mmol/L (98-107); CREATININE 1.15 mg/dL (0.55-1.30); GFR AFRICAN AMERICAN 83 mL/min (>90); GLUCOSE 160 mg/dL (74-106); POTASSIUM 3.9 mmol/L (3.5-5.1); PROTHROMBIN TIME 10.8 SECS (9.5-12.5); SODIUM SERUM 139 mmol/L (136-145); TOTAL BILIRUBIN 0.7 mg/dL (0.0-1.0); TOTAL PROTEIN, SERUM 7.3 g/dL (6.4-8.3); UREA NITROGEN, BLOOD 10 mg/dL (8-21)
[2024-03-26 09:42] LABS: GFR NON AFRICAN-AMERICAN 68 mL/min (>90)
[2024-03-26 09:47] LABS: AMYLASE 34 U/L (0-100); BILIRUBIN,DIRECT 0.2 mg/dL (0.0-0.3); CREATINE KINASE, TOTAL 40 U/L (39-308); LIPASE 28 U/L (16-77)
[2024-03-26 10:27] LABS: BILIRUBIN,URINE NEGATIVE (NEGATIVE); BLOOD, URINE 1+ (NEGATIVE); CLARITY/URINE CLEAR (CLEAR); COLOR,URINE YELLOW (YELLOW); GLUCOSE,URINE NEGATIVE (NEGATIVE); KETONES,URINE NEGATIVE (NEGATIVE); LEUKOCYTE ESTERASE ,URINE NEGATIVE (NEGATIVE); NITRITE, URINE NEGATIVE (NEGATIVE); PH,URINE 6.5 (5.0-8.0); PROTEIN URINE NEGATIVE (NEGATIVE); UROBILINOGEN,URINE 0.2 (0.2-1.0)
[2024-03-26 11:25] LABS: BACTERIA,URINE None Seen /HPF (None Seen); WBC,URINE NONE SEEN /HPF (0-3)
[2024-03-26] MEDS: ASPIRIN 81 MG TABLET(ECOTRIN) PO ONE (11:28)
[2024-03-26] MEDS: HYDROcodone/ACETAMIN 10-325 MG TAB PO ONE (11:33)
[2024-03-26 12:13] VITALS: BP_SYST 133; PULSE 89; RESP 18; TEMP 98.3; O2SAT 98
== END 2024-03-26 12:20 | disposition home or self-care (01) ==
LOC: SED 08:50
DX: R07.89 Other chest pain (principal); R00.8 Other abnormalities of heart beat; E11.9 Type 2 diabetes mellitus without complications; I10 Essential (primary) hypertension; Z85.9 Personal history of malignant neoplasm, unspecified; Z88.1 Allergy status to other antibiotic agents; Z88.2 Allergy status to sulfonamides; Z88.5 Allergy status to narcotic agent; Z88.8 Allergy status to other drugs, medicaments and biological substances; Z79.899 Other long term (current) drug therapy; Z79.2 Long term (current) use of antibiotics
CPT/HCPCS: 99285; 74176; 71045; 80076; 80048; 81001; 82009; 82150; 82550; 83690; 85025; 85610; 85730; 84484; 36415; 93005; 82948; 83605; 82397; Q0162; 81000; 81015

== ENCOUNTER 2024-04-20 12:29 | Emergency (ER) | payer OTHER, MEDICAID ==
[~2024-04-20] VITALS: Ht 188 cm; Wt 147.4 kg
[2024-04-20 12:32] VITALS: BP_SYST 109; PULSE 52; RESP 18; TEMP 97.2; O2SAT 99
[2024-04-20] MEDS ORDERED: VIS25 PO (14:01)
[2024-04-20] MEDS: KETOROLAC TROMETHAMINE 60 MG/2 ML VIAL IM ONE (14:04)
[2024-04-20] MEDS: LORazepam 1 MG TABLET PO ONE (14:05)
[2024-04-20 14:12] VITALS: BP_SYST 144; PULSE 68; RESP 16; O2SAT 94
== END 2024-04-20 14:14 | disposition home or self-care (01) ==
LOC: SED 12:29
DX: F41.9 Anxiety disorder, unspecified (principal); R00.2 Palpitations; E11.9 Type 2 diabetes mellitus without complications; I10 Essential (primary) hypertension; Z88.1 Allergy status to other antibiotic agents; Z88.2 Allergy status to sulfonamides; Z88.6 Allergy status to analgesic agent; Z88.8 Allergy status to other drugs, medicaments and biological substances
CPT/HCPCS: 99283; 93005; 96372; J1885

== ENCOUNTER 2024-04-22 03:19 | Inpatient (IN) | payer OTHER, MEDICAID ==
[~2024-04-22] VITALS: Ht 188 cm; Wt 152.9 kg
[~2024-04-22 03:19] MED LIST changes: +VIS25 PO
[2024-04-22 03:28] VITALS: BP_SYST 130; PULSE 71; RESP 35; TEMP 96.7; O2SAT 96
[2024-04-22] MEDS: MORPHINE 4 MG INJ. 4 MG/ML VIAL IVP ONE ×2 (03:43→11:28)
[2024-04-22] MEDS: NITROGLYCERIN 1 INCH (GM) OINT. TP ONE (03:49)
[2024-04-22 03:56] LABS: EOSINOPHILS # (AUTO) 0.1 K/uL (0.0-0.4); LYMPHOCYTES # (AUTO) 1.4 K/uL (1.0-5.5); MONOCYTES # (AUTO) 0.5 K/uL (0.0-1.0); NEUTROPHILS # (AUTO) 4.2 K/uL (1.8-7.7); WHITE BLOOD COUNT (AUTO) 6.2 K/uL (4.8-10.8)
[2024-04-22 03:58] LABS: BASOPHILS % (AUTO) 0.6 % (0.0-2.0); EOSINOPHILS % (AUTO) 1.1 % (0.0-4.0); HEMATOCRIT 43.2 % (36-54); HEMOGLOBIN 14.8 g/dL (14.0-18.0); LYMPHOCYTES % (AUTO) 22.1 % (20.5-51.5); MEAN CORPUSCULAR HEMOGLOBIN 28 pg (27-31); MEAN CORPUSCULAR HGB CONC 34 % (32-36); MEAN CORPUSCULAR VOLUME 83 fL (79.0-98.0); MONOCYTES % (AUTO) 7.9 % (1.7-9.3); NEUTROPHILS % (AUTO) 68.3 % (40.0-70.0); PLATELET COUNT (AUTO) 223 K/uL (130-430); RED BLOOD CELL COUNT(AUTO) 5.22 MIL/uL (4.2-6.2)
[2024-04-22] MEDS: ONDANSETRON HCL 4 MG/2 ML VIAL IVP ONE (04:06)
[2024-04-22 04:07] LABS: ALANINE AMINOTRANSFERASE 24 U/L (12-78); ALBUMIN 3.3 g/dL (3.4-4.8); ANION GAP 8 (5-15); ASPARTATE AMINOTRANSFERASE 21 U/L (10-37); CALCIUM 9.2 mg/dL (8.4-11.0); CARBON DIOXIDE 28 mmol/L (23-29); CHLORIDE 104 mmol/L (98-107); CREATININE 1.12 mg/dL (0.55-1.30); GFR AFRICAN AMERICAN 85 mL/min (>90); GLUCOSE 131 mg/dL (74-106); POTASSIUM 3.9 mmol/L (3.5-5.1); SODIUM SERUM 140 mmol/L (136-145); TOTAL BILIRUBIN 0.6 mg/dL (0.0-1.0); TOTAL PROTEIN, SERUM 6.9 g/dL (6.4-8.3); UREA NITROGEN, BLOOD 11 mg/dL (8-21)
[2024-04-22 04:08] LABS: GFR NON AFRICAN-AMERICAN 70 mL/min (>90)
[2024-04-22 04:09] LABS: BILIRUBIN,DIRECT 0.2 mg/dL (0.0-0.3)
[2024-04-22 04:11] LABS: PROTHROMBIN TIME 10.8 SECS (9.5-12.5)
[2024-04-22] MEDS ORDERED: DOXE10CA2 PO (06:25)
[2024-04-22] MEDS ORDERED: SERT-131 PO (06:25)
[2024-04-22] MEDS ORDERED: ONDANSETRON HCL 4 MG/2 ML VIAL IVP PRN (06:30)
[2024-04-22] MEDS: LORazepam 2 MG/ML VIAL IVP PRN ×2 (06:46→17:45)
[2024-04-22 08:16] VITALS: BP_SYST 98; PULSE 68; RESP 16; TEMP 98.4
[2024-04-22] MEDS ORDERED: ACETAMINOPHEN 325 MG TABLET PO PRN ×2 (09:15→11:15)
[2024-04-22] MEDS ORDERED: KETOROLAC TROMETHAMINE 30 MG VIAL IVP PRN (09:30)
[2024-04-22] MEDS: DIPHENHYDRAMINE INJ 50 MG/ML VIAL IVP PRN (11:29)
[2024-04-22] MEDS: ONDANSETRON HCL 4 MG/2 ML VIAL IVP PRN (11:31)
[2024-04-22] MEDS: SERTRALINE HCL 50 MG TABLET PO ONE (11:50)
[2024-04-22] MEDS: METOPROLOL SUCCINATE 25 MG TAB.SR.24H (TOPROL XL) PO ONE (11:51)
[2024-04-22] MEDS: NORMAL SALINE 5 ML DISP.SYRIN IVF SCH (14:00)
[2024-04-22 16:39] VITALS: O2SAT 98
[2024-04-22 16:52] VITALS: BP_SYST 109; PULSE 72; RESP 18; TEMP 97.2; O2SAT 97
[2024-04-22] MEDS: MORPHINE 2 MG/ML INJ. SYRINGE IVP PRN (17:46)
[2024-04-22 20:00] VITALS: BP_SYST 99; PULSE 68; RESP 18; TEMP 97.4; O2SAT 94
[2024-04-22] MEDS: LOSARTAN POTASSIUM 25 MG TABLET PO SCH (21:00)
[2024-04-22] MEDS: TAMSULOSIN HCL 0.4 MG CAP PO SCH (21:49)
[2024-04-22] MEDS: ATORVASTATIN 10 MG TABLET PO SCH (21:49)
[2024-04-22] MEDS: DOXEPIN HCL (SINEquan) 10 MG CAPSULE PO SCH (21:49)
[2024-04-22] MEDS: NACL 0.9% 1,000 ML IV ONE (21:50)
[2024-04-22] MEDS ORDERED: NITROGLYCERIN 1 INCH (GM) OINT. TP ONE (23:30)
[2024-04-23] VITALS: BP_SYST 112; PULSE 64; RESP 18; TEMP 97.4; O2SAT 95
[2024-04-23 05:07] LABS: BASOPHILS # (AUTO) 0.1 K/uL (0.0-0.2); BASOPHILS % (AUTO) 0.8 % (0.0-2.0); EOSINOPHILS # (AUTO) 0.1 K/uL (0.0-0.4); EOSINOPHILS % (AUTO) 1.7 % (0.0-4.0); HEMATOCRIT 42.2 % (36-54); HEMOGLOBIN 14.2 g/dL (14.0-18.0); LYMPHOCYTES # (AUTO) 1.8 K/uL (1.0-5.5); LYMPHOCYTES % (AUTO) 25.9 % (20.5-51.5); MEAN CORPUSCULAR HEMOGLOBIN 28 pg (27-31); MEAN CORPUSCULAR HGB CONC 34 % (32-36); MEAN CORPUSCULAR VOLUME 84 fL (79.0-98.0); MONOCYTES # (AUTO) 0.6 K/uL (0.0-1.0); MONOCYTES % (AUTO) 8.5 % (1.7-9.3); NEUTROPHILS # (AUTO) 4.5 K/uL (1.8-7.7); NEUTROPHILS % (AUTO) 63.1 % (40.0-70.0); PLATELET COUNT (AUTO) 198 K/uL (130-430); RED BLOOD CELL COUNT(AUTO) 5.02 MIL/uL (4.2-6.2); RED CELL DISTRIBUTION WIDTH 15.9 % (9.0-15.0); WHITE BLOOD COUNT (AUTO) 7.1 K/uL (4.8-10.8)
[2024-04-23 05:36] LABS: CALCIUM 8.4 mg/dL (8.4-11.0); CREATININE 0.93 mg/dL (0.55-1.30); POTASSIUM 4.1 mmol/L (3.5-5.1)
[2024-04-23 08:23] VITALS: BP_SYST 130; PULSE 68; RESP 18; TEMP 97.8; O2SAT 98
[2024-04-23] MEDS: SERTRALINE HCL 50 MG TABLET PO SCH (08:42)
[2024-04-23] MEDS: PANTOPRAZOLE SODIUM 40 MG TAB PO SCH (08:42)
[2024-04-23] MEDS: METOPROLOL SUCCINATE 25 MG TAB.SR.24H (TOPROL XL) PO SCH (08:42)
[2024-04-23] MEDS: DOCUSATE SODIUM 100 MG CAPSULE PO ONE (12:13)
[2024-04-23 12:37] VITALS: BP_SYST 103; PULSE 40; RESP 18; TEMP 97.7; O2SAT 98
[2024-04-23] MEDS: ONDANSETRON HCL 4 MG/2 ML VIAL IVP PRN (12:59)
[2024-04-23] MEDS: GOLYTELY / COLYTE SOLUTION 4 LITERS PO ONE (17:15)
[2024-04-23] MEDS: BISACODYL 5 MG TABLET.DR (DULCOLAX) PO ONE (17:26)
[2024-04-23 18:35] VITALS: BP_SYST 96; PULSE 60; RESP 16; TEMP 97.5; O2SAT 97
[2024-04-23 20:45] VITALS: BP_SYST 120; PULSE 55; RESP 20; TEMP 97.8; O2SAT 97; O2SAT 98
[2024-04-24 07:08] LABS: BASOPHILS % (AUTO) 0.8 % (0.0-2.0); EOSINOPHILS # (AUTO) 0.1 K/uL (0.0-0.4); EOSINOPHILS % (AUTO) 1.4 % (0.0-4.0); HEMOGLOBIN 14.1 g/dL (14.0-18.0); LYMPHOCYTES # (AUTO) 1.3 K/uL (1.0-5.5); LYMPHOCYTES % (AUTO) 19.9 % (20.5-51.5); MEAN CORPUSCULAR HEMOGLOBIN 28 pg (27-31); MEAN CORPUSCULAR HGB CONC 34 % (32-36); MEAN CORPUSCULAR VOLUME 85 fL (79.0-98.0); MONOCYTES # (AUTO) 0.5 K/uL (0.0-1.0); MONOCYTES % (AUTO) 7.7 % (1.7-9.3); NEUTROPHILS # (AUTO) 4.5 K/uL (1.8-7.7); NEUTROPHILS % (AUTO) 70.2 % (40.0-70.0); PLATELET COUNT (AUTO) 191 K/uL (130-430); RED BLOOD CELL COUNT(AUTO) 4.97 MIL/uL (4.2-6.2); RED CELL DISTRIBUTION WIDTH 15.8 % (9.0-15.0); WHITE BLOOD COUNT (AUTO) 6.4 K/uL (4.8-10.8)
[2024-04-24] MEDS ORDERED: MIDAZOLAM HCL 5 MG/5 ML VIAL ONE (07:13)
[2024-04-24] MEDS: fentaNYL CITRATE/PF 100 MCG/2 ML AMP ONE (07:13)
[2024-04-24 07:31] LABS: INR 1.1 (0.80-1.20); PROTHROMBIN TIME 11.4 SECS (9.5-12.5)
[2024-04-24 07:44] LABS: CALCIUM 8.7 mg/dL (8.4-11.0); CREATININE 0.92 mg/dL (0.55-1.30); POTASSIUM 4.5 mmol/L (3.5-5.1); TOTAL BILIRUBIN 0.6 mg/dL (0.0-1.0); TOTAL PROTEIN, SERUM 6.4 g/dL (6.4-8.3)
[2024-04-24] MEDS ORDERED: SIMETHICONE 40 MG/0.6 ML ML ONE (07:56)
[2024-04-24] MEDS ORDERED: DIPHENHYDRAMINE INJ 50 MG/ML VIAL ONE (08:17)
[2024-04-24] MEDS: DOCUSATE SODIUM 100 MG CAPSULE PO SCH (09:00)
[2024-04-24] MEDS ORDERED: DOCU-144 PO (09:36)
[2024-04-24] MEDS ORDERED: PANT40TA45 PO (09:36)
[2024-04-24] MEDS: INSULIN REGULAR, HUMAN 100 UNITS/ML, 3 ML VIAL (humuLIN R) SUBCUT PRN (11:20)
[2024-04-24 12:40] VITALS: BP_SYST 115; PULSE 58; RESP 18; TEMP 97.7; O2SAT 97
[2024-04-24 13:48] VITALS: BP_SYST 114; PULSE 78; RESP 18; TEMP 98.6; O2SAT 99
[2024-04-24 15:00] VITALS: BP_SYST 140; PULSE 61; RESP 18; TEMP 97.8
[2024-04-24 15:53] VITALS: O2SAT 99
== END 2024-04-24 13:55 | disposition home health service (06) | DRG 392 ==
LOC: SED 03:19 → STU 06:21 → SMU 04-24 12:14
PROVIDERS: ADMIT Preventive Medicine Preventive Medicine/Occupational Environmental Medicine; ATTEND Preventive Medicine Preventive Medicine/Occupational Environmental Medicine
PROC: 0DB68ZX Excision of Stomach, Via Natural or Artificial Opening Endoscopic, Diagnostic (ICD-10-PCS; 2024-04-24)
PROC: 0DJD8ZZ Inspection of Lower Intestinal Tract, Via Natural or Artificial Opening Endoscopic (ICD-10-PCS; principal; 2024-04-24 07:30)
PROC: 0DB98ZX Excision of Duodenum, Via Natural or Artificial Opening Endoscopic, Diagnostic (ICD-10-PCS; 2024-04-24 07:30)
DX: K21.00 Gastro-esophageal reflux disease with esophagitis, without bleeding (principal); K29.70 Gastritis, unspecified, without bleeding; I27.21 Secondary pulmonary arterial hypertension; I10 Essential (primary) hypertension; E11.9 Type 2 diabetes mellitus without complications; F41.9 Anxiety disorder, unspecified; G47.00 Insomnia, unspecified; E78.5 Hyperlipidemia, unspecified; N40.0 Benign prostatic hyperplasia without lower urinary tract symptoms; N20.0 Calculus of kidney; K64.8 Other hemorrhoids; E88.09 Other disorders of plasma-protein metabolism, not elsewhere classified; Z88.2 Allergy status to sulfonamides; Z88.5 Allergy status to narcotic agent; Z88.8 Allergy status to other drugs, medicaments and biological substances
CPT/HCPCS: 36415; 43239; 45378; 71045; 71275; 80048; 80053; 80076; 82948; 83880; 84484; 85025; 85379; 85610; 85730; 88305; 88312; 88313; 93005; 93970; 96372; 97110-GP; 97116-GP; 97530-GP; 99283; 99291; G0378; J1200; J1885; J2060; J2250; J2270; J2405; J3010; J7030; Q9967

== ENCOUNTER 2024-04-26 04:41 | Emergency (ER) | payer OTHER, MEDICAID ==
[~2024-04-26] VITALS: Ht 188 cm; Wt 149.7 kg
[~2024-04-26 04:41] MED LIST changes: +DOCU-144 PO; +DOXE10CA2 PO; -ESCI-6 PO; -LORA-259 PO; +SERT-131 PO; -VIS25 PO; -ZOLP5TAB2 PO
[2024-04-26 04:43] VITALS: BP_SYST 121; PULSE 84; RESP 18; TEMP 98.1; O2SAT 98
[2024-04-26] MEDS: LORazepam 2 MG/ML VIAL IM ONE (05:15)
[2024-04-26 05:31] VITALS: BP_SYST 124; PULSE 67; RESP 20; TEMP 98.1; O2SAT 99
== END 2024-04-26 05:31 | disposition home or self-care (01) ==
LOC: SED 04:41
DX: R00.2 Palpitations (principal); F41.9 Anxiety disorder, unspecified; R07.89 Other chest pain; E11.9 Type 2 diabetes mellitus without complications; I10 Essential (primary) hypertension; Z85.9 Personal history of malignant neoplasm, unspecified; Z88.1 Allergy status to other antibiotic agents; Z88.2 Allergy status to sulfonamides; Z88.5 Allergy status to narcotic agent; Z88.8 Allergy status to other drugs, medicaments and biological substances; Z79.899 Other long term (current) drug therapy; Z79.2 Long term (current) use of antibiotics
CPT/HCPCS: 99283; 96372; J2060

== ENCOUNTER 2024-04-28 04:51 | Emergency (ER) | payer OTHER, MEDICAID ==
[~2024-04-28] VITALS: Ht 188 cm; Wt 149.7 kg
[2024-04-28 05:00] VITALS: BP_SYST 110; PULSE 91; RESP 18; TEMP 97.9; O2SAT 100
[2024-04-28] MEDS: KETOROLAC TROMETHAMINE 30 MG VIAL IM ONE (05:34)
[2024-04-28] MEDS: LORazepam 1 MG TABLET PO ONE (05:35)
[2024-04-28 06:15] LABS: BASOPHILS % (AUTO) 0.7 % (0.0-2.0); EOSINOPHILS # (AUTO) 0.1 K/uL (0.0-0.4); EOSINOPHILS % (AUTO) 1.6 % (0.0-4.0); HEMATOCRIT 45.9 % (36-54); HEMOGLOBIN 15.5 g/dL (14.0-18.0); LYMPHOCYTES # (AUTO) 1.2 K/uL (1.0-5.5); LYMPHOCYTES % (AUTO) 19.2 % (20.5-51.5); MEAN CORPUSCULAR HEMOGLOBIN 28 pg (27-31); MEAN CORPUSCULAR HGB CONC 34 % (32-36); MEAN CORPUSCULAR VOLUME 84 fL (79.0-98.0); MONOCYTES # (AUTO) 0.5 K/uL (0.0-1.0); MONOCYTES % (AUTO) 7.5 % (1.7-9.3); NEUTROPHILS # (AUTO) 4.4 K/uL (1.8-7.7); PLATELET COUNT (AUTO) 231 K/uL (130-430); RED BLOOD CELL COUNT(AUTO) 5.45 MIL/uL (4.2-6.2); RED CELL DISTRIBUTION WIDTH 16.1 % (9.0-15.0); WHITE BLOOD COUNT (AUTO) 6.1 K/uL (4.8-10.8)
[2024-04-28 06:34] LABS: ALBUMIN 3.5 g/dL (3.4-4.8); BILIRUBIN,DIRECT 0.2 mg/dL (0.0-0.3); CALCIUM 9.3 mg/dL (8.4-11.0); CREATININE 1.07 mg/dL (0.55-1.30); POTASSIUM 4.4 mmol/L (3.5-5.1); TOTAL BILIRUBIN 0.8 mg/dL (0.0-1.0); TOTAL PROTEIN, SERUM 7.5 g/dL (6.4-8.3)
[2024-04-28 07:30] VITALS: TEMP 98.3
[2024-04-28] MEDS: MORPHINE 4 MG INJ. 4 MG/ML VIAL IVP ONE (08:01)
[2024-04-28] MEDS: ONDANSETRON HCL 4 MG/2 ML VIAL IVP ONE (08:04)
[2024-04-28 08:35] LABS: BILIRUBIN,URINE NEGATIVE (NEGATIVE); CLARITY/URINE CLEAR (CLEAR); COLOR,URINE YELLOW (YELLOW); GLUCOSE,URINE NEGATIVE (NEGATIVE); KETONES,URINE NEGATIVE (NEGATIVE); LEUKOCYTE ESTERASE ,URINE NEGATIVE (NEGATIVE); NITRITE, URINE NEGATIVE (NEGATIVE); PROTEIN URINE NEGATIVE (NEGATIVE); UROBILINOGEN,URINE 0.2 (0.2-1.0)
[2024-04-28 08:36] LABS: BLOOD, URINE TRACE (NEGATIVE)
[2024-04-28 08:49] LABS: BACTERIA,URINE None Seen /HPF (None Seen); WBC,URINE NONE SEEN /HPF (0-3)
[2024-04-28] MEDS ORDERED: HYDR-3927 PO (09:20)
[2024-04-28] MEDS ORDERED: IBUP-1971 PO (09:20)
[2024-04-28 09:30] VITALS: BP_SYST 134; PULSE 68; RESP 16; O2SAT 99
== END 2024-04-28 09:30 | disposition home or self-care (01) ==
LOC: SED 04:51
DX: R10.33 Periumbilical pain (principal); F41.9 Anxiety disorder, unspecified; E11.9 Type 2 diabetes mellitus without complications; I10 Essential (primary) hypertension; Z85.9 Personal history of malignant neoplasm, unspecified; Z88.1 Allergy status to other antibiotic agents; Z88.2 Allergy status to sulfonamides; Z88.5 Allergy status to narcotic agent; Z79.899 Other long term (current) drug therapy; Z79.2 Long term (current) use of antibiotics
CPT/HCPCS: 99285; 74176; 96374; 96375; 80076; 80048; 81001; 83690; 85025; 36415; 83605; 82397; 96372; J1885; J2405; J2270; 81000; 81015

== ENCOUNTER 2024-04-30 05:09 | Emergency (ER) | payer OTHER, MEDICAID ==
[~2024-04-30] VITALS: Ht 188 cm; Wt 147.4 kg
[~2024-04-30 05:09] MED LIST changes: +HYDR-3927 PO; +IBUP-1971 PO
[2024-04-30 05:20] VITALS: BP_SYST 123; PULSE 80; RESP 20; TEMP 98; O2SAT 100
[2024-04-30 06:01] LABS: BILIRUBIN,URINE NEGATIVE (NEGATIVE); BLOOD, URINE NEGATIVE (NEGATIVE); CLARITY/URINE CLEAR (CLEAR); COLOR,URINE YELLOW (YELLOW); GLUCOSE,URINE NEGATIVE (NEGATIVE); KETONES,URINE NEGATIVE (NEGATIVE); LEUKOCYTE ESTERASE ,URINE NEGATIVE (NEGATIVE); NITRITE, URINE NEGATIVE (NEGATIVE); PH,URINE 7.5 (5.0-8.0); PROTEIN URINE NEGATIVE (NEGATIVE); UROBILINOGEN,URINE 0.2 (0.2-1.0)
[2024-04-30 06:04] LABS: BASOPHILS % (AUTO) 0.6 % (0.0-2.0); EOSINOPHILS # (AUTO) 0.1 K/uL (0.0-0.4); EOSINOPHILS % (AUTO) 1.6 % (0.0-4.0); HEMATOCRIT 49.1 % (36-54); HEMOGLOBIN 16.4 g/dL (14.0-18.0); LYMPHOCYTES # (AUTO) 1.2 K/uL (1.0-5.5); LYMPHOCYTES % (AUTO) 19.8 % (20.5-51.5); MEAN CORPUSCULAR HEMOGLOBIN 28 pg (27-31); MEAN CORPUSCULAR HGB CONC 33 % (32-36); MEAN CORPUSCULAR VOLUME 84 fL (79.0-98.0); MONOCYTES # (AUTO) 0.4 K/uL (0.0-1.0); MONOCYTES % (AUTO) 6.3 % (1.7-9.3); NEUTROPHILS # (AUTO) 4.4 K/uL (1.8-7.7); NEUTROPHILS % (AUTO) 71.7 % (40.0-70.0); PLATELET COUNT (AUTO) 264 K/uL (130-430); RED BLOOD CELL COUNT(AUTO) 5.81 MIL/uL (4.2-6.2); RED CELL DISTRIBUTION WIDTH 16.3 % (9.0-15.0); WHITE BLOOD COUNT (AUTO) 6.2 K/uL (4.8-10.8)
[2024-04-30 06:33] LABS: ALBUMIN 3.9 g/dL (3.4-4.8); BILIRUBIN,DIRECT 0.2 mg/dL (0.0-0.3); CALCIUM 9.4 mg/dL (8.4-11.0); CREATININE 1.07 mg/dL (0.55-1.30); POTASSIUM 3.8 mmol/L (3.5-5.1); TOTAL BILIRUBIN 0.7 mg/dL (0.0-1.0); TOTAL PROTEIN, SERUM 8.1 g/dL (6.4-8.3)
[2024-04-30] MEDS: LORazepam 2 MG/ML VIAL IVP ONE (07:00)
[2024-04-30] MEDS: KETOROLAC TROMETHAMINE 30 MG VIAL IVP ONE (07:01)
[2024-04-30] MEDS ORDERED: LORA-259 PO (07:55)
[2024-04-30 08:16] VITALS: BP_SYST 123; PULSE 76; RESP 20; TEMP 98; O2SAT 100
== END 2024-04-30 08:11 | disposition home or self-care (01) ==
LOC: SED 05:09
DX: R10.33 Periumbilical pain (principal); G89.29 Other chronic pain; F41.9 Anxiety disorder, unspecified; R19.7 Diarrhea, unspecified; R11.10 Vomiting, unspecified; E11.9 Type 2 diabetes mellitus without complications; I10 Essential (primary) hypertension; Z90.49 Acquired absence of other specified parts of digestive tract; Z88.1 Allergy status to other antibiotic agents; Z88.2 Allergy status to sulfonamides; Z88.5 Allergy status to narcotic agent; Z88.8 Allergy status to other drugs, medicaments and biological substances; Z79.899 Other long term (current) drug therapy; Z79.2 Long term (current) use of antibiotics
CPT/HCPCS: 99284; 96374; 96375; 80076; 80048; 81001; 83690; 85025; 36415; 74018; 81003; J1885; J2060

== ENCOUNTER 2024-05-06 05:32 | Inpatient (IN) | payer OTHER, MEDICAID ==
[~2024-05-06] VITALS: Ht 188 cm; Wt 147.0 kg
[~2024-05-06 05:32] MED LIST changes: +LORA-259 PO
[2024-05-06 05:40] VITALS: BP_SYST 95; PULSE 78; RESP 19; TEMP 97.6; O2SAT 98
[2024-05-06 06:44] LABS: BASOPHILS # (AUTO) 0.1 K/uL (0.0-0.2); BASOPHILS % (AUTO) 0.9 % (0.0-2.0); EOSINOPHILS # (AUTO) 0.1 K/uL (0.0-0.4); HEMATOCRIT 45.1 % (36-54); LYMPHOCYTES # (AUTO) 1.3 K/uL (1.0-5.5); LYMPHOCYTES % (AUTO) 17.3 % (20.5-51.5); MEAN CORPUSCULAR HEMOGLOBIN 28 pg (27-31); MEAN CORPUSCULAR HGB CONC 33 % (32-36); MEAN CORPUSCULAR VOLUME 85 fL (79.0-98.0); MONOCYTES # (AUTO) 0.6 K/uL (0.0-1.0); MONOCYTES % (AUTO) 7.8 % (1.7-9.3); NEUTROPHILS # (AUTO) 5.4 K/uL (1.8-7.7); PLATELET COUNT (AUTO) 246 K/uL (130-430); RED BLOOD CELL COUNT(AUTO) 5.33 MIL/uL (4.2-6.2); RED CELL DISTRIBUTION WIDTH 16.4 % (9.0-15.0); WHITE BLOOD COUNT (AUTO) 7.4 K/uL (4.8-10.8)
[2024-05-06] MEDS: ONDANSETRON HCL 4 MG/2 ML VIAL IVP ONE ×2 (06:52→07:40)
[2024-05-06] MEDS: NACL 0.9% 1,000 ML IV ONE ×2 (07:06→07:16)
[2024-05-06 07:15] LABS: ALBUMIN 3.6 g/dL (3.4-4.8); BILIRUBIN,DIRECT 0.2 mg/dL (0.0-0.3); CALCIUM 9.1 mg/dL (8.4-11.0); CREATININE 0.93 mg/dL (0.55-1.30); POTASSIUM 3.8 mmol/L (3.5-5.1); TOTAL BILIRUBIN 0.7 mg/dL (0.0-1.0); TOTAL PROTEIN, SERUM 7.4 g/dL (6.4-8.3)
[2024-05-06 07:27] LABS: BILIRUBIN,URINE NEGATIVE (NEGATIVE); BLOOD, URINE 1+ (NEGATIVE); CLARITY/URINE CLEAR (CLEAR); COLOR,URINE YELLOW (YELLOW); GLUCOSE,URINE NEGATIVE (NEGATIVE); KETONES,URINE NEGATIVE (NEGATIVE); LEUKOCYTE ESTERASE ,URINE NEGATIVE (NEGATIVE); NITRITE, URINE NEGATIVE (NEGATIVE); PROTEIN URINE NEGATIVE (NEGATIVE); UROBILINOGEN,URINE 0.2 (0.2-1.0)
[2024-05-06 07:37] LABS: BACTERIA,URINE RARE /HPF (None Seen); MUCUS,URINE None Seen /LPF (None Seen); RBC,URINE 0-3 /HPF (0-3); WBC,URINE 0-3 /HPF (0-3)
[2024-05-06] MEDS: KETOROLAC TROMETHAMINE 30 MG VIAL IVP ONE (07:42)
[2024-05-06 08:42] LABS: INFLUENZA TYPE A Negative (NEGATIVE); INFLUENZA TYPE B NEGATIVE (NEGATIVE)
[2024-05-06 10:20] VITALS: BP_SYST 119; PULSE 70; RESP 14; TEMP 98.4; O2SAT 96
[2024-05-06] MEDS: KETOCONAZOLE 2%, 60 GM TOPICAL CREAM. (NIZORAL) TP ONE (10:30)
[2024-05-06] MEDS ORDERED: MELATONIN 3 MG TABLET PO PRN (10:45)
[2024-05-06] MEDS ORDERED: ACETAMINOPHEN 500 MG TABLET PO PRN (11:00)
[2024-05-06] MEDS ORDERED: NALOXONE HCL 0.4 MG/ML AMP (NARCAN) IVP PRN (11:00)
[2024-05-06] MEDS: D5NS 1,000 ML IV SCH (11:14)
[2024-05-06] MEDS ORDERED: INSULIN LISPRO SLIDING SCALE 100 UNITS/ML, 3 ML VIAL (humaLOG) SUBCUT PRN (11:45)
[2024-05-06] MEDS: SERTRALINE HCL 50 MG TABLET PO ONE (13:07)
[2024-05-06] MEDS: ATORVASTATIN 10 MG TABLET PO ONE (13:07)
[2024-05-06] MEDS: MORPHINE 2 MG/ML INJ. SYRINGE IVP PRN (13:09)
[2024-05-06] MEDS ORDERED: DIPHENHYDRAMINE HCL 25 MG CAPSULE PO PRN (15:30)
[2024-05-06] MEDS: NYSTATIN 30 GM TOPICAL CREAM TP SCH (16:36)
[2024-05-06] MEDS: LORazepam 2 MG/ML VIAL IVP PRN (16:37)
[2024-05-06 16:59] VITALS: BP_SYST 130; PULSE 52; RESP 18; TEMP 97.5; O2SAT 97
[2024-05-06 19:00] VITALS: BP_SYST 116; PULSE 53; RESP 18; TEMP 97.4; O2SAT 97
[2024-05-06] MEDS: TAMSULOSIN HCL 0.4 MG CAP PO SCH (20:34)
[2024-05-06] MEDS: PANTOPRAZOLE SODIUM 40 MG TAB PO SCH (20:35)
[2024-05-06] MEDS: IBUPROFEN 800 MG TABLET PO SCH (20:35)
[2024-05-07 00:07] LABS: BARBITURATE, URINE NEGATIVE (NEG <=200); BENZODIAZEPINE, URINE POSITIVE (NEG <=150); CANNABINOID, URINE NEGATIVE (NEG <=50); COCAINE, URINE NEGATIVE (NEG <=150); METHAMPHETAMINES SCREEN,URINE NEGATIVE (NEG <=500); OPIATE, URINE NEGATIVE (NEG <=100); PHENCYCLIDINE SCREEN,URINE NEGATIVE (NEG <=25); URINE AMPHETAMINE NEGATIVE (NEG <=500); URINE METHADONE NEGATIVE (NEG <=200); URINE OXYCODONE SCREEN NEGATIVE (NEG <=100)
[2024-05-07 00:08] LABS: UR TRICYCLIC ANTIDEPRESSANTS NEGATIVE (NEG <=300)
[2024-05-07 06:23] LABS: BASOPHILS % (AUTO) 0.6 % (0.0-2.0); EOSINOPHILS # (AUTO) 0.1 K/uL (0.0-0.4); EOSINOPHILS % (AUTO) 0.8 % (0.0-4.0); HEMOGLOBIN 13.4 g/dL (14.0-18.0); LYMPHOCYTES # (AUTO) 0.9 K/uL (1.0-5.5); LYMPHOCYTES % (AUTO) 12.1 % (20.5-51.5); MEAN CORPUSCULAR HEMOGLOBIN 28 pg (27-31); MEAN CORPUSCULAR HGB CONC 34 % (32-36); MEAN CORPUSCULAR VOLUME 84 fL (79.0-98.0); MONOCYTES # (AUTO) 0.5 K/uL (0.0-1.0); MONOCYTES % (AUTO) 6.3 % (1.7-9.3); NEUTROPHILS % (AUTO) 80.2 % (40.0-70.0); PLATELET COUNT (AUTO) 208 K/uL (130-430); RED BLOOD CELL COUNT(AUTO) 4.76 MIL/uL (4.2-6.2); RED CELL DISTRIBUTION WIDTH 15.9 % (9.0-15.0); WHITE BLOOD COUNT (AUTO) 7.5 K/uL (4.8-10.8)
[2024-05-07 06:58] LABS: ALBUMIN 2.8 g/dL (3.4-4.8); CREATININE 0.76 mg/dL (0.55-1.30); POTASSIUM 3.5 mmol/L (3.5-5.1); TOTAL BILIRUBIN 0.8 mg/dL (0.0-1.0)
[2024-05-07 08:10] VITALS: O2SAT 100
[2024-05-07] MEDS: LOSARTAN POTASSIUM 25 MG TABLET PO SCH (09:24)
[2024-05-07] MEDS: METOPROLOL SUCCINATE 25 MG TAB.SR.24H (TOPROL XL) PO SCH (09:25)
[2024-05-07] MEDS: SERTRALINE HCL 50 MG TABLET PO SCH (09:25)
[2024-05-07] MEDS ORDERED: POLYETHYLENE GLYCOL 3350, 17 GM/ POWD.PACK PO ONE (12:15)
[2024-05-07] MEDS: HEPARIN SODIUM,PORCINE 5,000 UNITS/ML VIAL SUBCUT ONE (13:06)
[2024-05-07] MEDS: KETOCONAZOLE 2%, 60 GM TOPICAL CREAM. (NIZORAL) TP SCH (15:21)
[2024-05-07 16:27] LABS: BENZODIAZEPINE, URINE POSITIVE (NEG <=150); OPIATE, URINE POSITIVE (NEG <=100)
[2024-05-07 16:28] LABS: BARBITURATE, URINE NEGATIVE (NEG <=200); CANNABINOID, URINE NEGATIVE (NEG <=50); COCAINE, URINE NEGATIVE (NEG <=150); METHAMPHETAMINES SCREEN,URINE NEGATIVE (NEG <=500); PHENCYCLIDINE SCREEN,URINE NEGATIVE (NEG <=25); URINE AMPHETAMINE NEGATIVE (NEG <=500); URINE METHADONE NEGATIVE (NEG <=200); URINE OXYCODONE SCREEN NEGATIVE (NEG <=100)
[2024-05-07 16:29] LABS: UR TRICYCLIC ANTIDEPRESSANTS NEGATIVE (NEG <=300)
[2024-05-07] MEDS ORDERED: BISACODYL 5 MG TABLET.DR (DULCOLAX) PO ONE (17:00)
[2024-05-07] MEDS: ATORVASTATIN 10 MG TABLET PO SCH (17:56)
[2024-05-07] MEDS ORDERED: GOLYTELY / COLYTE SOLUTION 4 LITERS PO ONE (18:00)
[2024-05-07 20:00] VITALS: BP_SYST 110; PULSE 57; RESP 16; TEMP 97.3; O2SAT 97
[2024-05-07] MEDS: POLYETHYLENE GLYCOL 3350, 17 GM/ POWD.PACK PO SCH (21:05)
[2024-05-07] MEDS: MELATONIN 5 MG TABLET PO SCH (21:07)
[2024-05-07] MEDS: HEPARIN SODIUM,PORCINE 5,000 UNITS/ML VIAL SUBCUT SCH (22:25)
[2024-05-07] MEDS: MAGNESIUM CITRATE 300 ML ORAL SOLUTION PO ONE (22:36)
[2024-05-08 00:14] VITALS: BP_SYST 111; PULSE 54; RESP 18; TEMP 97.5; O2SAT 95
[2024-05-08 08:00] VITALS: BP_SYST 119; PULSE 63; RESP 18; TEMP 98.4; O2SAT 99
[2024-05-08 08:32] LABS: BASOPHILS % (AUTO) 0.6 % (0.0-2.0); EOSINOPHILS # (AUTO) 0.1 K/uL (0.0-0.4); EOSINOPHILS % (AUTO) 1.7 % (0.0-4.0); HEMOGLOBIN 14.1 g/dL (14.0-18.0); LYMPHOCYTES % (AUTO) 19.8 % (20.5-51.5); MEAN CORPUSCULAR HEMOGLOBIN 29 pg (27-31); MEAN CORPUSCULAR HGB CONC 34 % (32-36); MEAN CORPUSCULAR VOLUME 85 fL (79.0-98.0); MONOCYTES # (AUTO) 0.4 K/uL (0.0-1.0); MONOCYTES % (AUTO) 7.4 % (1.7-9.3); NEUTROPHILS # (AUTO) 3.7 K/uL (1.8-7.7); NEUTROPHILS % (AUTO) 70.5 % (40.0-70.0); PLATELET COUNT (AUTO) 221 K/uL (130-430); RED BLOOD CELL COUNT(AUTO) 4.94 MIL/uL (4.2-6.2); RED CELL DISTRIBUTION WIDTH 16.1 % (9.0-15.0); WHITE BLOOD COUNT (AUTO) 5.2 K/uL (4.8-10.8)
[2024-05-08 08:45] LABS: ALBUMIN 3.2 g/dL (3.4-4.8); CALCIUM 8.5 mg/dL (8.4-11.0); CREATININE 0.84 mg/dL (0.55-1.30); POTASSIUM 3.9 mmol/L (3.5-5.1); TOTAL BILIRUBIN 0.7 mg/dL (0.0-1.0); TOTAL PROTEIN, SERUM 6.8 g/dL (6.4-8.3)
[2024-05-08] MEDS: ONDANSETRON 4 MG ODT TAB PO PRN (09:35)
[2024-05-08 11:05] VITALS: BP_SYST 122; PULSE 57; RESP 18; TEMP 97.5; O2SAT 96
[2024-05-08] MEDS: PIPERACILLIN/TAZO 3.375 GM in NS 50 ML IV SCH (11:58)
[2024-05-08] MEDS: DICYCLOMINE HCL 10 MG CAPSULE PO SCH (15:43)
[2024-05-08 16:07] VITALS: BP_SYST 130; PULSE 59; RESP 18; TEMP 97.9; O2SAT 95
[2024-05-08 19:30] VITALS: O2SAT 98
[2024-05-08 20:00] VITALS: BP_SYST 104; PULSE 66; RESP 18; TEMP 96.8; O2SAT 98
[2024-05-08] MEDS: busPIRone HCL 5 MG TABLET PO SCH (20:53)
[2024-05-08] MEDS: metroNIDAZOLE 500 MG TABLET PO SCH (20:53)
[2024-05-09 01:00] VITALS: BP_SYST 112; PULSE 63; RESP 20; TEMP 96.5; O2SAT 98
[2024-05-09 07:49] LABS: BASOPHILS % (AUTO) 0.7 % (0.0-2.0); EOSINOPHILS # (AUTO) 0.1 K/uL (0.0-0.4); EOSINOPHILS % (AUTO) 1.5 % (0.0-4.0); HEMATOCRIT 39.7 % (36-54); HEMOGLOBIN 13.3 g/dL (14.0-18.0); LYMPHOCYTES # (AUTO) 0.9 K/uL (1.0-5.5); LYMPHOCYTES % (AUTO) 14.9 % (20.5-51.5); MEAN CORPUSCULAR HEMOGLOBIN 29 pg (27-31); MEAN CORPUSCULAR HGB CONC 33 % (32-36); MEAN CORPUSCULAR VOLUME 86 fL (79.0-98.0); MONOCYTES # (AUTO) 0.4 K/uL (0.0-1.0); MONOCYTES % (AUTO) 7.2 % (1.7-9.3); NEUTROPHILS # (AUTO) 4.4 K/uL (1.8-7.7); NEUTROPHILS % (AUTO) 75.7 % (40.0-70.0); PLATELET COUNT (AUTO) 196 K/uL (130-430); RED BLOOD CELL COUNT(AUTO) 4.63 MIL/uL (4.2-6.2); RED CELL DISTRIBUTION WIDTH 15.9 % (9.0-15.0); WHITE BLOOD COUNT (AUTO) 5.8 K/uL (4.8-10.8)
[2024-05-09 08:00] VITALS: O2SAT 100
[2024-05-09 08:13] VITALS: BP_SYST 106; PULSE 65; RESP 18; TEMP 96.5; O2SAT 100
[2024-05-09 08:17] LABS: ALBUMIN 2.8 g/dL (3.4-4.8); CALCIUM 8.6 mg/dL (8.4-11.0); CREATININE 0.77 mg/dL (0.55-1.30); POTASSIUM 3.8 mmol/L (3.5-5.1); TOTAL BILIRUBIN 0.6 mg/dL (0.0-1.0); TOTAL PROTEIN, SERUM 6.2 g/dL (6.4-8.3)
[2024-05-09] MEDS: FLUoxetine HCL 20 MG CAPSULE (PROzac) PO SCH (09:04)
[2024-05-09] MEDS: metroNIDAZOLE 500 MG TABLET PO SCH (09:12)
[2024-05-09 10:52] VITALS: BP_SYST 106; PULSE 65; RESP 18; TEMP 96.5; O2SAT 100
[2024-05-09 11:00] VITALS: BP_SYST 126; PULSE 57; RESP 16; TEMP 97.4; O2SAT 98
== END 2024-05-09 11:00 | DRG 392 ==
LOC: SED 05:32 → SMU 08:33
PROVIDERS: ADMIT General Practice; ATTEND General Practice
DX: K52.9 Noninfective gastroenteritis and colitis, unspecified (principal); B37.89 Other sites of candidiasis; I95.9 Hypotension, unspecified; E10.9 Type 1 diabetes mellitus without complications; F41.9 Anxiety disorder, unspecified; N40.0 Benign prostatic hyperplasia without lower urinary tract symptoms; K21.9 Gastro-esophageal reflux disease without esophagitis; Z20.822 Contact with and (suspected) exposure to COVID-19; G47.00 Insomnia, unspecified; I10 Essential (primary) hypertension; E87.5 Hyperkalemia; Z88.8 Allergy status to other drugs, medicaments and biological substances; Z79.899 Other long term (current) drug therapy
CPT/HCPCS: 36415; 80048; 80053; 80076; 80307; 81000; 81001; 81015; 82948; 83605; 83690; 84484; 85025; 87040; 87045-TC; 87046; 87081; 87230; 97110-GP; 97116-GP; 97530-GP; 99285; J1644; J1885; J1956; J2060; J2270; J2405; J2543; J7030; J7042; J7060; Q0162; Q9967

== ENCOUNTER 2024-06-15 07:34 | Emergency (ER) | payer OTHER, MEDICAID ==
[~2024-06-15] VITALS: Ht 188 cm; Wt 138.3 kg
[~2024-06-15 07:34] MED LIST changes: -DOCU-144 PO; -DOXE10CA2 PO; -HYDR-3927 PO; -IBUP-1971 PO; -LORA-259 PO; -SERT-131 PO
[2024-06-15 07:35] VITALS: BP_SYST 118; PULSE 76; RESP 18; TEMP 97.2; O2SAT 100
[2024-06-15 08:44] LABS: BILIRUBIN,URINE NEGATIVE (NEGATIVE); BLOOD, URINE NEGATIVE (NEGATIVE); CLARITY/URINE CLEAR (CLEAR); COLOR,URINE YELLOW (YELLOW); GLUCOSE,URINE NEGATIVE (NEGATIVE); KETONES,URINE NEGATIVE (NEGATIVE); LEUKOCYTE ESTERASE ,URINE NEGATIVE (NEGATIVE); NITRITE, URINE NEGATIVE (NEGATIVE); PROTEIN URINE NEGATIVE (NEGATIVE); UROBILINOGEN,URINE 0.2 (0.2-1.0)
[2024-06-15] MEDS: MORPHINE 4 MG INJ. 4 MG/ML VIAL IVP ONE (08:52)
[2024-06-15] MEDS: ONDANSETRON HCL 4 MG/2 ML VIAL IVP ONE (08:52)
[2024-06-15 09:04] LABS: BASOPHILS % (AUTO) 0.3 % (0.0-2.0); EOSINOPHILS # (AUTO) 0.1 K/uL (0.0-0.4); EOSINOPHILS % (AUTO) 0.7 % (0.0-4.0); LYMPHOCYTES # (AUTO) 1.6 K/uL (1.0-5.5); LYMPHOCYTES % (AUTO) 19.5 % (20.5-51.5); MEAN CORPUSCULAR HEMOGLOBIN 29 pg (27-31); MEAN CORPUSCULAR HGB CONC 34 % (32-36); MEAN CORPUSCULAR VOLUME 85 fL (79.0-98.0); MONOCYTES # (AUTO) 0.5 K/uL (0.0-1.0); MONOCYTES % (AUTO) 5.8 % (1.7-9.3); NEUTROPHILS % (AUTO) 73.7 % (40.0-70.0); PLATELET COUNT (AUTO) 247 K/uL (130-430); RED BLOOD CELL COUNT(AUTO) 5.17 MIL/uL (4.2-6.2); RED CELL DISTRIBUTION WIDTH 15.8 % (9.0-15.0); WHITE BLOOD COUNT (AUTO) 8.2 K/uL (4.8-10.8)
[2024-06-15 09:33] LABS: ALBUMIN 3.8 g/dL (3.4-4.8); BILIRUBIN,DIRECT 0.2 mg/dL (0.0-0.3); CALCIUM 9.2 mg/dL (8.4-11.0); CREATININE 0.98 mg/dL (0.55-1.30); POTASSIUM 3.9 mmol/L (3.5-5.1); TOTAL BILIRUBIN 0.6 mg/dL (0.0-1.0); TOTAL PROTEIN, SERUM 7.3 g/dL (6.4-8.3)
[2024-06-15 10:41] VITALS: BP_SYST 155; PULSE 66; RESP 20; TEMP 97; O2SAT 98
== END 2024-06-15 10:59 | disposition home or self-care (01) ==
LOC: SED 07:34
DX: I72.3 Aneurysm of iliac artery (principal); R10.11 Right upper quadrant pain; R11.0 Nausea; E11.9 Type 2 diabetes mellitus without complications; E78.00 Pure hypercholesterolemia, unspecified; F32.A Depression, unspecified; F41.9 Anxiety disorder, unspecified; I10 Essential (primary) hypertension; K21.9 Gastro-esophageal reflux disease without esophagitis; Z90.49 Acquired absence of other specified parts of digestive tract; Z87.19 Personal history of other diseases of the digestive system; Z88.1 Allergy status to other antibiotic agents; Z88.2 Allergy status to sulfonamides; Z88.5 Allergy status to narcotic agent; Z79.899 Other long term (current) drug therapy
CPT/HCPCS: 99285; 74176; 96374; 96375; 80076; 80048; 81001; 83690; 85025; 84484; 36415; 93005; 81003; J2405; J2270